=== PATIENT | female | born 1985 | race Caucasian/White ===

== ENCOUNTER 2018-04-12 20:23 | Emergency (ER) | payer BC ==
[~2018-04-12] VITALS: Ht 170.2 cm; Wt 63.6 kg
[2018-04-12 20:25] VITALS: BP 140/97
[2018-04-12] MEDS ORDERED: PENI250T2 PO (20:53)
== END 2018-04-12 21:04 | disposition home or self-care (01) ==
LOC: ER 20:23
DX: K04.7 Periapical abscess without sinus (principal); G89.29 Other chronic pain; Z88.1 Allergy status to other antibiotic agents; Z90.49 Acquired absence of other specified parts of digestive tract; Z79.899 Other long term (current) drug therapy
CPT/HCPCS: 99283

== ENCOUNTER 2018-04-15 15:12 | Emergency (ER) | payer BC ==
[~2018-04-15] VITALS: Ht 170.2 cm; Wt 71.0 kg
[~2018-04-15 15:12] MED LIST: PENI250T2 PO
[2018-04-15 15:17] VITALS: BP 123/89
[2018-04-15] MEDS ORDERED: ondansetron 4mg rapidly disintigrating tab PO ONE (15:55)
[2018-04-15] MEDS ORDERED: predniSONE 20 mg tablet PO ONE (15:55)
[2018-04-15] MEDS ORDERED: diphenhydrAMINE 50 mg/ml inj IM ONE (15:55)
[2018-04-15] MEDS ORDERED: clindamycin 150mg capsule PO ONE (15:55)
[2018-04-15] MEDS ORDERED: CLIN300C85 PO (15:55)
[2018-04-15] MEDS ORDERED: ONDA8TAB9 PO (15:57)
== END 2018-04-15 16:13 | disposition home or self-care (01) ==
LOC: ER 15:13
DX: R11.10 Vomiting, unspecified (principal); R10.9 Unspecified abdominal pain; R19.7 Diarrhea, unspecified; T36.0X5A Adverse effect of penicillins, initial encounter; G89.29 Other chronic pain; Z90.49 Acquired absence of other specified parts of digestive tract; Z88.1 Allergy status to other antibiotic agents; Z79.2 Long term (current) use of antibiotics; Z79.899 Other long term (current) drug therapy; Y92.89 Other specified places as the place of occurrence of the external cause
CPT/HCPCS: 96372; 99284; J1200; J7512

== ENCOUNTER 2018-05-11 19:30 | Emergency (ER) | payer BC ==
[~2018-05-11] VITALS: Ht 172.7 cm; Wt 62.0 kg
[~2018-05-11 19:30] MED LIST changes: +CLIN300C85 PO; +ONDA8TAB9 PO; -PENI250T2 PO
[2018-05-11] MEDS ORDERED: clindamycin 600mg/D5W 50ml 50 ML IV ONE (21:30)
[2018-05-11 22:28] VITALS: BP 118/61
== END 2018-05-11 22:32 | disposition home or self-care (01) ==
LOC: ER 19:30
DX: K04.7 Periapical abscess without sinus (principal); J06.9 Acute upper respiratory infection, unspecified; G89.29 Other chronic pain; F17.200 Nicotine dependence, unspecified, uncomplicated; Z88.0 Allergy status to penicillin; Z88.1 Allergy status to other antibiotic agents; Z79.2 Long term (current) use of antibiotics; Z79.899 Other long term (current) drug therapy; Z90.49 Acquired absence of other specified parts of digestive tract; Z98.890 Other specified postprocedural states
CPT/HCPCS: 96365; 99283; J3490

== ENCOUNTER 2018-06-28 08:32 | Emergency (ER) | payer BC ==
[~2018-06-28] VITALS: Ht 170.2 cm; Wt 71.5 kg
[2018-06-28 08:36] VITALS: BP 126/78
[2018-06-28] MEDS ORDERED: LIDOcaine 1% w/epiNEPHrine 1:200,000 30ml vial IM ONE (08:50)
== END 2018-06-28 09:22 | disposition home or self-care (01) ==
LOC: ER 08:32
DX: S61.233A Puncture wound without foreign body of left middle finger without damage to nail, initial encounter (principal); G89.29 Other chronic pain; F17.210 Nicotine dependence, cigarettes, uncomplicated; Z90.49 Acquired absence of other specified parts of digestive tract; Z98.890 Other specified postprocedural states; Z88.0 Allergy status to penicillin; Z79.2 Long term (current) use of antibiotics; Z88.1 Allergy status to other antibiotic agents; Z88.8 Allergy status to other drugs, medicaments and biological substances; W26.0XXA Contact with knife, initial encounter; Y93.89 Activity, other specified; Y92.89 Other specified places as the place of occurrence of the external cause; Y99.8 Other external cause status
CPT/HCPCS: 12001; 99283; J3490

== ENCOUNTER 2018-07-24 21:01 | Emergency (ER) | payer BC ==
[~2018-07-24] VITALS: Ht 170.2 cm; Wt 63.6 kg
[~2018-07-24 21:01] MED LIST changes: +CLIN-96 PO; -CLIN300C85 PO
[2018-07-24 21:07] VITALS: BP 144/91
[2018-07-24] MEDS ORDERED: CLIN150C8 PO (22:13)
== END 2018-07-24 22:21 | disposition home or self-care (01) ==
LOC: ER 21:01
DX: K08.89 Other specified disorders of teeth and supporting structures (principal); G89.29 Other chronic pain; Z90.49 Acquired absence of other specified parts of digestive tract; Z98.890 Other specified postprocedural states; Z88.0 Allergy status to penicillin; Z88.1 Allergy status to other antibiotic agents; Z79.899 Other long term (current) drug therapy
CPT/HCPCS: 99283

== ENCOUNTER 2019-07-02 12:56 | Emergency (ER) | payer BC, MEDICAID ==
[~2019-07-02] VITALS: Ht 170.2 cm; Wt 71.8 kg
[~2019-07-02 12:56] MED LIST changes: +CLIN-90 PO; -CLIN-96 PO; +CLIN150C8 PO
[2019-07-02] MEDS ORDERED: albuterol 2.5 MG/3 ML nebule NEB ONE (13:55)
[2019-07-02] MEDS ORDERED: DOXY100C2 PO (14:29)
[2019-07-02] MEDS ORDERED: ALBU8.5H8 INH (14:29)
[2019-07-02] MEDS ORDERED: BENZ-16 PO (14:29)
[2019-07-02 14:37] VITALS: BP 104/62
== END 2019-07-02 14:39 | disposition home or self-care (01) ==
LOC: ER 12:56
DX: J20.9 Acute bronchitis, unspecified (principal); R07.89 Other chest pain; G89.29 Other chronic pain; F17.200 Nicotine dependence, unspecified, uncomplicated; Z90.89 Acquired absence of other organs; Z88.0 Allergy status to penicillin; Z88.1 Allergy status to other antibiotic agents; Z88.8 Allergy status to other drugs, medicaments and biological substances; Z87.01 Personal history of pneumonia (recurrent)
CPT/HCPCS: 71045; 94640; 94760; 99283

== ENCOUNTER 2020-01-10 15:38 | Emergency (ER) | payer MEDICAID ==
[~2020-01-10] VITALS: Ht 170.2 cm; Wt 72.7 kg
[~2020-01-10 15:38] MED LIST changes: +ALBU8.5H8 INH; -CLIN-90 PO; +CLIN-97 PO
[2020-01-10 15:43] VITALS: BP 124/83
[2020-01-10] MEDS ORDERED: CEPH250T PO (16:03)
[2020-01-10] MEDS ORDERED: NAPR-56 PO (16:03)
== END 2020-01-10 16:15 | disposition home or self-care (01) ==
LOC: ER 15:39
DX: K08.89 Other specified disorders of teeth and supporting structures (principal); F17.200 Nicotine dependence, unspecified, uncomplicated; Z87.01 Personal history of pneumonia (recurrent); Z79.899 Other long term (current) drug therapy; Z90.49 Acquired absence of other specified parts of digestive tract; Z98.890 Other specified postprocedural states; Z88.0 Allergy status to penicillin; Z88.8 Allergy status to other drugs, medicaments and biological substances; Z79.2 Long term (current) use of antibiotics
CPT/HCPCS: 99283

== ENCOUNTER 2020-01-11 15:16 | Emergency (ER) | payer MEDICAID ==
[~2020-01-11] VITALS: Ht 170.2 cm; Wt 72.7 kg
[~2020-01-11 15:16] MED LIST changes: +CEPH250T PO; +NAPR-56 PO
[2020-01-11 15:21] VITALS: BP 127/76
== END 2020-01-11 16:40 | disposition home or self-care (01) ==
LOC: ER 15:16
DX: K04.7 Periapical abscess without sinus (principal); G89.29 Other chronic pain; Z87.01 Personal history of pneumonia (recurrent); Z90.89 Acquired absence of other organs; Z98.890 Other specified postprocedural states; Z88.0 Allergy status to penicillin; Z88.1 Allergy status to other antibiotic agents; Z88.8 Allergy status to other drugs, medicaments and biological substances; Z79.2 Long term (current) use of antibiotics; Z79.899 Other long term (current) drug therapy
CPT/HCPCS: 99281

== ENCOUNTER 2020-06-25 19:26 | Inpatient (IN) | payer MEDICAID ==
[~2020-06-25] VITALS: Ht 170.2 cm; Wt 70.5 kg
[~2020-06-25 19:26] MED LIST changes: -CEPH250T PO; -NAPR-56 PO
[2020-06-25] MEDS ORDERED: normal saline 1000ML IV soln IVB ONE (19:50)
[2020-06-25] MEDS ORDERED: ketorolac trometh. 30mg/ml inj. IV ONE (19:50)
[2020-06-25] MEDS ORDERED: normal saline 1000ml 1,000 ML IV ONE (19:55)
[2020-06-25] MEDS ORDERED: dexamethasone sod phosphate 10mg/ml inj IV STA (19:55)
[2020-06-25 20:19] LABS: BASOPHILS # (AUTO) 0.1 X10'3 (0-0.2); BASOPHILS % (AUTO) 0.6 % (0-1); EOSINOPHILS # (AUTO) 0.5 X10'3 (0-0.9); EOSINOPHILS % (AUTO) 2.8 % (0-6); HEMATOCRIT 40.7 % (35.0-45.0); HEMOGLOBIN 13.5 g/dl (12.0-16.0); LYMPHOCYTES # (AUTO) 3.7 X10'3 (1.1-4.8); LYMPHOCYTES % (AUTO) 20.5 % (21-51); MEAN CORPUSCULAR HEMOGLOBIN 29.8 PG (27.0-31.0); MEAN CORPUSCULAR HGB CONC 33.1 g/dL (33.0-36.5); MEAN CORPUSCULAR VOLUME 90.2 FL (78-98); MEAN PLATELET VOLUME 6.9 FL (7.4-10.4); MONOCYTES # (AUTO) 1.1 X10'3 (0-0.9); MONOCYTES % (AUTO) 6.2 % (2-12); NEUTROPHILS # (AUTO) 12.5 X10'3 (1.8-7.7); NEUTROPHILS % (AUTO) 69.9 % (42-75); PLATELET COUNT 404 X10'3 (140-440); RED BLOOD COUNT 4.52 X10'6 (4.20-5.60); RED CELL DISTRIBUTION WIDTH 13.3 % (11.5-14.5); WHITE BLOOD COUNT 17.9 X10'3 (4.5-11.0)
[2020-06-25 20:34] LABS: ALANINE AMINOTRANSFERASE 13 U/L (12-78); ALBUMIN 3.7 G/DL (3.4-5.0); ALBUMIN/GLOBULIN RATIO 0.9 (1.1-1.5); ALKALINE PHOSPHATASE 88 IU/L (46-116); ANION GAP 7 (8-16); ASPARTATE AMINO TRANSFERASE 14 U/L (10-37); BILIRUBIN,TOTAL 0.2 MG/DL (0.1-1.0); BLOOD UREA NITROGEN 9 MG/DL (7-18); BUN/CREATININE RATIO 15.5 (6.6-38.0); C-REACTIVE PROTEIN 8.33 MG/DL (0.0-0.5); CALCIUM 8.6 MG/DL (8.5-10.1); CHLORIDE 101 MMOL/L (99-107); CREATININE 0.58 MG/DL (0.40-0.90); GLUCOSE 87 MG/DL (70-104); SODIUM 137 MMOL/L (135-145); TOTAL CARBON DIOXIDE 28.9 MMOL/L (24-32); TOTAL PROTEIN 7.8 G/DL (6.4-8.2); eGFR > 90 ML/MIN
[2020-06-25 20:48] LABS: POTASSIUM 3.8 MMOL/L (3.5-5.1)
[2020-06-25] MEDS ORDERED: CefTRIAXone/D5W-Rocephin 1gm 50 ML IV ONE (21:00)
[2020-06-25] MEDS ORDERED: potassium Cl 20 mEq SR tablet PO PRN ×2 (21:10)
[2020-06-25] MEDS ORDERED: mag hydrox/Alum hydrox/simeth 30ml oral suspension PO PRN (21:10)
[2020-06-25] MEDS ORDERED: magnesium 4gm in 100ml NS 100 ML IV PRN (21:10)
[2020-06-25] MEDS ORDERED: magnesium Cl slow-release 64mg tablet PO PRN (21:10)
[2020-06-25] MEDS ORDERED: ondansetron/PF 4mg/2ml inj IV PRN (21:10)
[2020-06-25] MEDS ORDERED: magnesium hydroxide 30ml (MOM) UD suspension PO PRN (21:10)
[2020-06-25] MEDS ORDERED: magnesium 2GM in 50ml NS 50 ML IV PRN (21:10)
[2020-06-25] MEDS ORDERED: acetaminophen 325mg tablet PO PRN (21:10)
[2020-06-25] MEDS ORDERED: potassium Cl 40MEQ/1/2NS 520ml 520 ML IV PRN ×2 (21:10)
--- NOTE | 2020-06-25 23:05 | NUR ---
Received report from Placido ANDERSON in the ER. The pt arrived on the unit via gurney and was able to ambulate to her bed. She was on 2L O2 via N/C, VSS, with NS running at 100 mls/hr. Pt had no signs of distress, will continue to monitor.
[2020-06-25 23:55] VITALS: BP 133/82
[2020-06-25] MEDS ORDERED: DULO60CA65 PO (23:59)
[2020-06-26] MEDS: HYDROcodone/acetaminophen 5mg/325mg tablet PO PRN ×2 (00:03→08:16)
[2020-06-26] MEDS ORDERED: albuterol 2.5 MG/3 ML nebule NEB PRN (03:00)
[2020-06-26] MEDS ORDERED: dexamethasone 4mg/ml inj IM SCH (04:00)
[2020-06-26] MEDS: dexamethasone sod phosphate 10mg/ml inj IV SCH ×2 (04:17→08:07)
[2020-06-26 06:25] LABS: BASOPHILS % (AUTO) 0.1 % (0-1); EOSINOPHILS % (AUTO) 0 % (0-6); HEMATOCRIT 35.9 % (35.0-45.0); LYMPHOCYTES # (AUTO) 0.5 X10'3 (1.1-4.8); LYMPHOCYTES % (AUTO) 5.5 % (21-51); MEAN CORPUSCULAR HEMOGLOBIN 30.2 PG (27.0-31.0); MEAN CORPUSCULAR HGB CONC 33.5 g/dL (33.0-36.5); MEAN CORPUSCULAR VOLUME 90.3 FL (78-98); MEAN PLATELET VOLUME 7.2 FL (7.4-10.4); MONOCYTES # (AUTO) 0.1 X10'3 (0-0.9); MONOCYTES % (AUTO) 0.6 % (2-12); NEUTROPHILS # (AUTO) 8.7 X10'3 (1.8-7.7); NEUTROPHILS % (AUTO) 93.8 % (42-75); PLATELET COUNT 351 X10'3 (140-440); RED BLOOD COUNT 3.98 X10'6 (4.20-5.60); RED CELL DISTRIBUTION WIDTH 13.7 % (11.5-14.5); WHITE BLOOD COUNT 9.3 X10'3 (4.5-11.0)
[2020-06-26 06:39] LABS: ALANINE AMINOTRANSFERASE 15 U/L (12-78); ALBUMIN 2.9 G/DL (3.4-5.0); ALBUMIN/GLOBULIN RATIO 0.8 (1.1-1.5); ALKALINE PHOSPHATASE 67 IU/L (46-116); ANION GAP 7 (8-16); ASPARTATE AMINO TRANSFERASE 9 U/L (10-37); BILIRUBIN,TOTAL 0.3 MG/DL (0.1-1.0); BLOOD UREA NITROGEN 9 MG/DL (7-18); BUN/CREATININE RATIO 19.1 (6.6-38.0); CHLORIDE 106 MMOL/L (99-107); CREATININE 0.47 MG/DL (0.40-0.90); GLUCOSE 163 MG/DL (70-104); MAGNESIUM 2.1 MG/DL (1.5-2.4); POTASSIUM 4.4 MMOL/L (3.5-5.1); SODIUM 139 MMOL/L (135-145); TOTAL CARBON DIOXIDE 26.3 MMOL/L (24-32); TOTAL PROTEIN 6.4 G/DL (6.4-8.2); eGFR > 90 ML/MIN
--- NOTE | 2020-06-26 06:41 | NUR ---
Problems reprioritized. Patient report given, questions answered & plan of care reviewed with Bina ANDERSON.
--- NOTE | 2020-06-26 06:51 | NUR ---
Patient in room [facility]. I have received report from mira ANDERSON and had the opportunity to ask questions and assume patient care.
[2020-06-26 07:00] VITALS: BP 98/63
[2020-06-26] MEDS ORDERED: azithromycin/NS 500mg/250ml 250 ML IV SCH (08:00)
[2020-06-26] MEDS ORDERED: CefTRIAXone/D5W-Rocephin 1gm 50 ML IV SCH (08:00)
[2020-06-26] MEDS ORDERED: K and/or MAG REPLACEMENT MC SCH (08:00)
[2020-06-26] MEDS ORDERED: pneumococcal 23-VAL P-sac vacc 25 mcg/0.5ml vial IMVAC ONE (10:00)
[2020-06-26] MEDS ORDERED: FLU VACC QS2020-21(6MOS UP)/PF 60 MCG/0.5 ML SYRINGE IMVAC ONE (10:00)
[2020-06-26] MEDS ORDERED: LEVO750T46 PO (10:21)
[2020-06-26] MEDS ORDERED: PRED10TA23 PO (10:21)
--- NOTE | 2020-06-26 12:53 | NUR ---
patient up and about seen by Dr Becerra is for DC o2 sats 95% on RA. All DC instructions given to patient and instructions given for smoking cessation. patient refused flu and pneu shot stated she will have this when she sees her PCP. DC home via private car with spouse to home in stable condition. 1200hrs
== END 2020-06-26 12:28 | disposition home or self-care (01) | DRG 145 ==
LOC: ER 19:27 → ED HOLD 21:08 → SUR 3N 23:30
PROVIDERS: ADMIT Family Medicine; ATTEND Family Medicine
PROC: 3E0234Z Introduction of Serum, Toxoid and Vaccine into Muscle, Percutaneous Approach (ICD-10-PCS; principal; 2020-06-26)
PROC: 3E02340 Introduction of Influenza Vaccine into Muscle, Percutaneous Approach (ICD-10-PCS; 2020-06-26)
DX: J20.9 Acute bronchitis, unspecified (principal); J96.01 Acute respiratory failure with hypoxia; F17.210 Nicotine dependence, cigarettes, uncomplicated; G89.29 Other chronic pain; J45.909 Unspecified asthma, uncomplicated; M54.9 Dorsalgia, unspecified; Z20.822 Contact with and (suspected) exposure to COVID-19; Z79.899 Other long term (current) drug therapy; Z90.49 Acquired absence of other specified parts of digestive tract; Z23 Encounter for immunization; Z88.0 Allergy status to penicillin; Z88.8 Allergy status to other drugs, medicaments and biological substances
CPT/HCPCS: 36415; 71045; 80053; 83605; 83735; 84145; 85025; 86140; 87040; 87081; 87502; 87503; 87635; 90732; 93005; 94640; 94760; 96361; 96365; 96375; 99285; C9803; G0378; J0456; J0696; J1100; J1885; J7030

== ENCOUNTER 2020-07-09 20:42 | Emergency (ER) | payer MEDICAID ==
[~2020-07-09] VITALS: Ht 170.2 cm; Wt 72.7 kg
[~2020-07-09 20:42] MED LIST changes: -CLIN-97 PO; -CLIN150C8 PO; +DULO60CA65 PO; -ONDA8TAB9 PO; +PRED10TA23 PO
[2020-07-09] MEDS ORDERED: ipratropium/albuterol 3ml nebule NEB ONE (21:30)
[2020-07-09] MEDS ORDERED: ALBU8.5H8 INH (22:37)
[2020-07-09] MEDS ORDERED: CIPR-260 PO (22:37)
[2020-07-09 22:50] VITALS: BP 125/85
== END 2020-07-09 22:52 | disposition home or self-care (01) ==
LOC: ER 20:43
DX: R05 Cough (principal); R06.02 Shortness of breath; R09.02 Hypoxemia; J45.909 Unspecified asthma, uncomplicated; G89.29 Other chronic pain; F17.200 Nicotine dependence, unspecified, uncomplicated; Z90.49 Acquired absence of other specified parts of digestive tract; Z87.01 Personal history of pneumonia (recurrent); Z88.0 Allergy status to penicillin; Z88.1 Allergy status to other antibiotic agents; Z88.8 Allergy status to other drugs, medicaments and biological substances; Z79.2 Long term (current) use of antibiotics; Z79.899 Other long term (current) drug therapy
CPT/HCPCS: 71045; 94640; 94760; 99283

== ENCOUNTER 2020-07-14 12:35 | Emergency (ER) | payer MEDICAID ==
[~2020-07-14] VITALS: Ht 170.2 cm; Wt 71.6 kg
[~2020-07-14 12:35] MED LIST changes: +CIPR-260 PO
[2020-07-14 12:42] VITALS: BP 133/89
[2020-07-14] MEDS ORDERED: ACET-3067 PO (13:09)
[2020-07-14] MEDS ORDERED: PENI500T2 PO (13:09)
== END 2020-07-14 13:17 | disposition home or self-care (01) ==
LOC: ER 12:35
DX: K02.9 Dental caries, unspecified (principal); K08.89 Other specified disorders of teeth and supporting structures; Z88.1 Allergy status to other antibiotic agents; J45.909 Unspecified asthma, uncomplicated; G89.29 Other chronic pain; Z87.01 Personal history of pneumonia (recurrent); Z90.49 Acquired absence of other specified parts of digestive tract; Z79.2 Long term (current) use of antibiotics; Z79.899 Other long term (current) drug therapy
CPT/HCPCS: 99281

== ENCOUNTER 2020-08-14 12:40 | Emergency (ER) | payer MEDICAID ==
[~2020-08-14] VITALS: Ht 170.2 cm; Wt 70.7 kg
[~2020-08-14 12:40] MED LIST changes: -PRED10TA23 PO
[2020-08-14 12:44] VITALS: BP 139/73
[2020-08-14] MEDS ORDERED: DULO60CA45 PO (12:46)
== END 2020-08-14 12:51 | disposition home or self-care (01) ==
LOC: ER 12:40
DX: F32.9 Major depressive disorder, single episode, unspecified (principal); Z76.0 Encounter for issue of repeat prescription; J45.909 Unspecified asthma, uncomplicated; G89.29 Other chronic pain; Z90.49 Acquired absence of other specified parts of digestive tract; Z88.1 Allergy status to other antibiotic agents; Z88.8 Allergy status to other drugs, medicaments and biological substances; Z79.899 Other long term (current) drug therapy
CPT/HCPCS: 99281

== ENCOUNTER 2020-09-14 16:09 | Emergency (ER) | payer MEDICAID ==
[~2020-09-14] VITALS: Ht 170.2 cm; Wt 68.2 kg
[~2020-09-14 16:09] MED LIST changes: +DULO60CA45 PO
[2020-09-14 16:10] VITALS: BP 131/78
[2020-09-14] MEDS ORDERED: ALBU8HFA PO (16:23)
[2020-09-14] MEDS ORDERED: DULO-31 PO (16:23)
== END 2020-09-14 16:33 | disposition home or self-care (01) ==
LOC: ER 16:10
DX: G89.29 Other chronic pain (principal); J45.909 Unspecified asthma, uncomplicated; Z76.0 Encounter for issue of repeat prescription; Z90.49 Acquired absence of other specified parts of digestive tract; Z98.890 Other specified postprocedural states; Z88.1 Allergy status to other antibiotic agents; Z88.8 Allergy status to other drugs, medicaments and biological substances; Z79.899 Other long term (current) drug therapy
CPT/HCPCS: 99281

== ENCOUNTER 2020-09-20 15:26 | Emergency (ER) | payer MEDICAID ==
[~2020-09-20] VITALS: Ht 170.2 cm; Wt 72.7 kg
[~2020-09-20 15:26] MED LIST changes: +ALBU8HFA PO; +DULO-31 PO
[2020-09-20 15:32] VITALS: BP 131/76
[2020-09-20] MEDS ORDERED: DULO60CA45 PO (15:38)
== END 2020-09-20 15:41 | disposition home or self-care (01) ==
LOC: ER 15:28
DX: F32.9 Major depressive disorder, single episode, unspecified (principal); J45.909 Unspecified asthma, uncomplicated; G89.29 Other chronic pain; Z76.0 Encounter for issue of repeat prescription; Z87.01 Personal history of pneumonia (recurrent); Z90.89 Acquired absence of other organs; Z98.890 Other specified postprocedural states; Z88.1 Allergy status to other antibiotic agents; Z88.8 Allergy status to other drugs, medicaments and biological substances; Z79.2 Long term (current) use of antibiotics; Z79.899 Other long term (current) drug therapy
CPT/HCPCS: 99281

== ENCOUNTER 2020-10-19 12:08 | Emergency (ER) | payer MEDICAID ==
[~2020-10-19] VITALS: Ht 170.2 cm; Wt 72.7 kg
[~2020-10-19 12:08] MED LIST changes: -ALBU8HFA PO
[2020-10-19 12:29] VITALS: BP 120/79
== END 2020-10-19 14:08 | disposition left against medical advice (07) ==
LOC: ER 12:10
DX: J45.909 Unspecified asthma, uncomplicated (principal); Z53.21 Procedure and treatment not carried out due to patient leaving prior to being seen by health care provider

== ENCOUNTER 2020-11-19 11:54 | Emergency (ER) | payer MEDICAID ==
[~2020-11-19] VITALS: Ht 170.2 cm; Wt 70.4 kg
[2020-11-19 12:02] VITALS: BP 114/72
[2020-11-19] MEDS ORDERED: ALB0.5UD IH (13:17)
[2020-11-19] MEDS ORDERED: PENI500T2 PO ×2 (13:17→13:20)
[2020-11-19] MEDS ORDERED: ALBU8.5H8 INH (13:20)
[2020-11-19] MEDS ORDERED: acetaminophen 325mg tablet PO ONE (13:25)
== END 2020-11-19 13:40 | disposition home or self-care (01) ==
LOC: ER 11:55
DX: K00.7 Teething syndrome (principal); K08.89 Other specified disorders of teeth and supporting structures; J45.909 Unspecified asthma, uncomplicated; G89.29 Other chronic pain; F32.9 Major depressive disorder, single episode, unspecified; Z87.01 Personal history of pneumonia (recurrent); Z90.89 Acquired absence of other organs; Z98.890 Other specified postprocedural states; Z88.1 Allergy status to other antibiotic agents; Z88.8 Allergy status to other drugs, medicaments and biological substances; Z79.2 Long term (current) use of antibiotics; Z79.899 Other long term (current) drug therapy
CPT/HCPCS: 99283

== ENCOUNTER 2021-03-25 15:52 | Emergency (ER) | payer MEDICAID ==
[~2021-03-25] VITALS: Ht 170.2 cm; Wt 77.2 kg
[~2021-03-25 15:52] MED LIST changes: +ALBU8.5H17 INH; -ALBU8.5H8 INH; -DULO60CA45 PO; +DULO60CA59 PO; +DULO60CA60 PO; +PENI500T2 PO
[2021-03-25 16:51] VITALS: BP 104/75
[2021-03-25] MEDS ORDERED: ALBU8.5H17 INH (17:49)
[2021-03-25] MEDS ORDERED: DULO60CA59 PO (17:49)
[2021-03-25] MEDS ORDERED: AZIT250T83 PO (18:33)
== END 2021-03-25 18:54 | disposition home or self-care (01) ==
LOC: ER 15:52
DX: J20.9 Acute bronchitis, unspecified (principal); Z20.822 Contact with and (suspected) exposure to COVID-19; J45.909 Unspecified asthma, uncomplicated; G89.29 Other chronic pain; F17.210 Nicotine dependence, cigarettes, uncomplicated; Z87.01 Personal history of pneumonia (recurrent); Z90.49 Acquired absence of other specified parts of digestive tract; Z79.2 Long term (current) use of antibiotics; Z79.899 Other long term (current) drug therapy; Z88.1 Allergy status to other antibiotic agents; Z88.8 Allergy status to other drugs, medicaments and biological substances
CPT/HCPCS: 71045; 87635; 99284; C9803

== ENCOUNTER 2021-08-10 14:06 | Emergency (ER) | payer MEDICAID, BC ==
[~2021-08-10] VITALS: Ht 170.2 cm; Wt 94.2 kg
[2021-08-10 14:09] VITALS: BP 151/91
[2021-08-10] MEDS ORDERED: DULO60CA59 PO (14:18)
== END 2021-08-10 14:28 | disposition home or self-care (01) ==
LOC: ER 14:07
DX: O99.342 Other mental disorders complicating pregnancy, second trimester (principal); F32.9 Major depressive disorder, single episode, unspecified; Z76.0 Encounter for issue of repeat prescription; G89.29 Other chronic pain; M54.9 Dorsalgia, unspecified; J44.9 Chronic obstructive pulmonary disease, unspecified; Z88.1 Allergy status to other antibiotic agents
CPT/HCPCS: 99281

== ENCOUNTER 2021-08-24 16:44 | Emergency (ER) | payer BC, MEDICAID ==
[~2021-08-24] VITALS: Ht 170.2 cm; Wt 99.1 kg
[2021-08-24 16:48] VITALS: BP 164/94
--- NOTE | 2021-08-24 17:53 | NUR ---
Patient stated that she didn't want to be seen and will go to her doctors appointment that is scheduled later this week.
== END 2021-08-24 18:02 | disposition left against medical advice (07) ==
LOC: ER 16:45
DX: H57.11 Ocular pain, right eye (principal); Z53.21 Procedure and treatment not carried out due to patient leaving prior to being seen by health care provider

== ENCOUNTER 2021-11-21 09:45 | Emergency (ER) | payer BC, MEDICAID ==
[~2021-11-21] VITALS: Ht 170.2 cm; Wt 86.8 kg
[2021-11-21 10:24] VITALS: BP 136/91
== END 2021-11-21 10:50 | disposition home or self-care (01) ==
LOC: ER 09:45
DX: O26.893 Other specified pregnancy related conditions, third trimester (principal); R60.9 Edema, unspecified; J45.909 Unspecified asthma, uncomplicated; F19.10 Other psychoactive substance abuse, uncomplicated; G89.29 Other chronic pain; F32.A Depression, unspecified; Z3A.38 38 weeks gestation of pregnancy; Z87.01 Personal history of pneumonia (recurrent); Z90.89 Acquired absence of other organs; Z98.890 Other specified postprocedural states; Z88.1 Allergy status to other antibiotic agents; Z88.8 Allergy status to other drugs, medicaments and biological substances; Z79.2 Long term (current) use of antibiotics; Z79.899 Other long term (current) drug therapy
CPT/HCPCS: 99281

== ENCOUNTER 2022-01-04 17:36 | Emergency (ER) | payer MEDICAID ==
[~2022-01-04] VITALS: Ht 170.2 cm; Wt 73.2 kg
[2022-01-04 17:47] VITALS: BP 123/84
[2022-01-04 18:47] LABS: BASOPHILS # (AUTO) 0.1 X10'3 (0-0.2); BASOPHILS % (AUTO) 1.2 % (0-1); EOSINOPHILS # (AUTO) 0.4 X10'3 (0-0.9); EOSINOPHILS % (AUTO) 4.6 % (0-6); HEMATOCRIT 31.8 % (35.0-45.0); HEMOGLOBIN 10.3 g/dl (12.0-16.0); LYMPHOCYTES # (AUTO) 2.3 X10'3 (1.1-4.8); LYMPHOCYTES % (AUTO) 27.4 % (21-51); MEAN CORPUSCULAR HEMOGLOBIN 25.8 PG (27.0-31.0); MEAN CORPUSCULAR HGB CONC 32.4 g/dL (33.0-36.5); MEAN CORPUSCULAR VOLUME 79.7 FL (78-98); MEAN PLATELET VOLUME 6.7 FL (7.4-10.4); MONOCYTES # (AUTO) 0.6 X10'3 (0-0.9); MONOCYTES % (AUTO) 7.2 % (2-12); NEUTROPHILS % (AUTO) 59.6 % (42-75); PLATELET COUNT 417 X10'3 (140-440); RED CELL DISTRIBUTION WIDTH 22.2 % (11.5-14.5); WHITE BLOOD COUNT 8.4 X10'3 (4.5-11.0)
[2022-01-04 19:04] LABS: ALANINE AMINOTRANSFERASE 21 U/L (12-78); ALBUMIN 3.2 G/DL (3.4-5.0); ALBUMIN/GLOBULIN RATIO 0.8 (1.1-1.5); ALKALINE PHOSPHATASE 90 IU/L (46-116); ANION GAP 8 (8-16); ASPARTATE AMINO TRANSFERASE 11 U/L (10-37); BILIRUBIN,TOTAL 0.1 MG/DL (0.1-1.0); BLOOD UREA NITROGEN 16 MG/DL (7-18); BUN/CREATININE RATIO 25.4 (6.6-38.0); CALCIUM 8.5 MG/DL (8.5-10.1); CHLORIDE 102 MMOL/L (99-107); CREATININE 0.63 MG/DL (0.40-0.90); GLUCOSE 98 MG/DL (70-104); POTASSIUM 4.5 MMOL/L (3.5-5.1); SODIUM 139 MMOL/L (135-145); TOTAL CARBON DIOXIDE 29.2 MMOL/L (24-32); TOTAL PROTEIN 7.4 G/DL (6.4-8.2); eGFR > 90 ML/MIN
[2022-01-04 19:17] LABS: CLARITY,URINE CLEAR (Clear); COLOR,URINE YELLOW (Yellow); GLUCOSE, URINE NEGATIVE (Neg); KETONES,URINE NEGATIVE (Neg); LEUKOCYTE ESTERASE ,URINE NEGATIVE (Neg); NITRITES, URINE NEGATIVE (Neg); OCCULT BLOOD,URINE NEGATIVE (Neg); PH,URINE 7.5 (4.8-8.0); PROTEIN,URINE NEGATIVE (Neg); UROBILINOGEN,URINE 0.2 E.U/dL (0.2-1.0)
[2022-01-04 19:22] LABS: UA COLLECTION TYPE CLN CATCH MIDSTREAM
[2022-01-04] MEDS ORDERED: HYDR25TA5 PO (19:24)
[2022-01-04] MEDS ORDERED: CITA20TA28 PO (19:24)
[2022-01-04] MEDS ORDERED: DULO60CA59 PO (19:24)
[2022-01-04 19:28] LABS: ANISOCYTOSIS 3+; ELLIPTOCYTES FEW; MICROCYTOSIS 1+; PLATELET ESTIMATE NORMAL; POLYCHROMASIA FEW; STOMATOCYTES FEW; TARGET CELLS 1+
== END 2022-01-04 20:10 | disposition home or self-care (01) ==
LOC: ER 17:38
DX: O99.345 Other mental disorders complicating the puerperium (principal); R60.0 Localized edema; J45.909 Unspecified asthma, uncomplicated; G89.29 Other chronic pain; M54.9 Dorsalgia, unspecified; Z90.49 Acquired absence of other specified parts of digestive tract; I10 Essential (primary) hypertension; Z88.0 Allergy status to penicillin; Z79.899 Other long term (current) drug therapy; Z79.2 Long term (current) use of antibiotics
CPT/HCPCS: 36415; 80053; 81003; 85008; 85025; 99283

== ENCOUNTER 2022-03-08 15:35 | Emergency (ER) | payer MEDICAID ==
[~2022-03-08] VITALS: Ht 170.2 cm; Wt 81.8 kg
[~2022-03-08 15:35] MED LIST changes: +HYDR25TA5 PO
[2022-03-08 15:37] VITALS: BP 133/85
[2022-03-08] MEDS ORDERED: AMOX-117 PO (17:33)
== END 2022-03-08 17:43 | disposition home or self-care (01) ==
LOC: ER 15:35
DX: K04.7 Periapical abscess without sinus (principal); J45.909 Unspecified asthma, uncomplicated; G89.29 Other chronic pain; M54.50 Low back pain, unspecified; Z98.890 Other specified postprocedural states
CPT/HCPCS: 99283

== ENCOUNTER 2022-03-24 16:50 | Emergency (ER) | payer MEDICAID ==
[~2022-03-24] VITALS: Ht 170.2 cm; Wt 84.0 kg
[2022-03-24 17:41] VITALS: BP 116/76
[2022-03-24] MEDS ORDERED: cephalexin 250mg capsule PO ONE (18:05)
[2022-03-24] MEDS ORDERED: DOXYCYCLINE 100MG CAPSULE PO STA (18:05)
[2022-03-24] MEDS ORDERED: DOXY100T67 PO (18:13)
[2022-03-24] MEDS ORDERED: CEPH250T PO (18:13)
--- NOTE | 2022-03-24 18:18 | NUR ---
po med x2 given
[2022-03-24] MEDS ORDERED: MUPI22OI30 TOP (18:28)
== END 2022-03-24 18:45 | disposition home or self-care (01) ==
LOC: ER 16:52
DX: L03.115 Cellulitis of right lower limb (principal); L03.116 Cellulitis of left lower limb; I87.2 Venous insufficiency (chronic) (peripheral); J45.909 Unspecified asthma, uncomplicated; G89.29 Other chronic pain; M54.9 Dorsalgia, unspecified; Z90.49 Acquired absence of other specified parts of digestive tract; Z79.899 Other long term (current) drug therapy; Z79.1 Long term (current) use of non-steroidal anti-inflammatories (NSAID); Z79.2 Long term (current) use of antibiotics
CPT/HCPCS: 99283

== ENCOUNTER 2024-01-13 09:22 | Emergency (ER) | payer MEDICAID ==
[~2024-01-13] VITALS: Ht 170.2 cm; Wt 71.2 kg
[2024-01-13 11:21] LABS: BASOPHILS # (AUTO) 0.1 X10'3 (0-0.2); BASOPHILS % (AUTO) 0.8 % (0-1); EOSINOPHILS # (AUTO) 0.2 X10'3 (0-0.9); EOSINOPHILS % (AUTO) 3.5 % (0-6); HEMATOCRIT 35.3 % (35.0-45.0); HEMOGLOBIN 11.7 g/dl (12.0-16.0); LYMPHOCYTES # (AUTO) 2.1 X10'3 (1.1-4.8); LYMPHOCYTES % (AUTO) 30.6 % (21-51); MEAN CORPUSCULAR HEMOGLOBIN 29.2 PG (27.0-31.0); MEAN CORPUSCULAR VOLUME 88.2 FL (78-98); MEAN PLATELET VOLUME 7.2 FL (7.4-10.4); MONOCYTES # (AUTO) 0.6 X10'3 (0-0.9); MONOCYTES % (AUTO) 7.9 % (2-12); NEUTROPHILS % (AUTO) 57.2 % (42-75); PLATELET COUNT 381 X10'3 (140-440); RED CELL DISTRIBUTION WIDTH 14.3 % (11.5-14.5)
[2024-01-13 11:23] LABS: URINE HCG NEGATIVE (NEG)
[2024-01-13 11:27] LABS: BILIRUBIN,URINE NEGATIVE (Neg); CLARITY,URINE CLOUDY (Clear); COLOR,URINE YELLOW (Yellow); GLUCOSE, URINE NEGATIVE (Neg); KETONES,URINE NEGATIVE (Neg); LEUKOCYTE ESTERASE ,URINE SMALL (Neg); NITRITES, URINE NEGATIVE (Neg); OCCULT BLOOD,URINE TRACE-INTACT (Neg); PROTEIN,URINE TRACE mg/dl (Neg); UROBILINOGEN,URINE 0.2 E.U/dL (0.2-1.0)
[2024-01-13 11:33] LABS: ALANINE AMINOTRANSFERASE 18 U/L (12-78); ALBUMIN 3.7 G/DL (3.4-5.0); ALBUMIN/GLOBULIN RATIO 0.9 (1.1-1.5); ALKALINE PHOSPHATASE 97 IU/L (46-116); ANION GAP 7 (8-16); ASPARTATE AMINO TRANSFERASE 13 U/L (10-37); BILIRUBIN,TOTAL 0.2 MG/DL (0.1-1.0); BLOOD UREA NITROGEN 10 MG/DL (7-18); BUN/CREATININE RATIO 16.1 (10.0-20.0); C-REACTIVE PROTEIN 0.99 MG/DL (0.0-0.5); CALCIUM 9.1 MG/DL (8.5-10.1); CHLORIDE 100 MMOL/L (99-107); CREATININE 0.62 MG/DL (0.40-0.90); GLUCOSE 75 MG/DL (70-104); POTASSIUM 3.4 MMOL/L (3.5-5.1); SODIUM 138 MMOL/L (135-145); TOTAL CARBON DIOXIDE 30.9 MMOL/L (24-32); eCRCL 122 ML/MIN; eGFR > 90 ML/MIN
[2024-01-13 11:46] LABS: UA COLLECTION TYPE CLN CATCH MIDSTREAM
[2024-01-13 11:48] LABS: BACTERIA,URINE 2+ /HPF (Neg); RBC,URINE 0-2 /HPF (0-2); SQUAMOUS EPITHELIAL CELL,UR MANY /LPF (FEW); WBC,URINE 50-100 /HPF (0-4)
[2024-01-13 11:49] LABS: MUCUS STRANDS MODERATE /LPF (Neg)
[2024-01-13] MEDS: orphenadrine citrate 60mg/2ml inj. IM ONE (13:36)
[2024-01-13] MEDS: ketorolac trometh 15mg/ml vial 15 MG/ML ML IM ONE (13:36)
[2024-01-13 13:47] VITALS: TEMP 98.1
[2024-01-13 13:58] LABS: BILIRUBIN,URINE NEGATIVE (Neg); CLARITY,URINE CLOUDY (Clear); COLOR,URINE YELLOW (Yellow); GLUCOSE, URINE NEGATIVE (Neg); KETONES,URINE NEGATIVE (Neg); LEUKOCYTE ESTERASE ,URINE NEGATIVE (Neg); NITRITES, URINE NEGATIVE (Neg); OCCULT BLOOD,URINE TRACE-INTACT (Neg); PROTEIN,URINE NEGATIVE (Neg); UROBILINOGEN,URINE 0.2 E.U/dL (0.2-1.0)
[2024-01-13 14:01] LABS: UA COLLECTION TYPE CLN CATCH MIDSTREAM
[2024-01-13 14:08] LABS: SQUAMOUS EPITHELIAL CELL,UR FEW /LPF (FEW)
[2024-01-13 14:09] LABS: BACTERIA,URINE FEW /HPF (Neg)
[2024-01-13 14:17] LABS: AMORPHOUS PHOSPHATES 3+; MUCUS STRANDS FEW /LPF (Neg)
[2024-01-13] MEDS ORDERED: CEPH500C2 PO (14:32)
[2024-01-13] MEDS ORDERED: DIF150T PO (14:32)
[2024-01-13] MEDS ORDERED: BACL10TA2 PO (14:34)
[2024-01-13] MEDS ORDERED: IBUP-1986 PO (14:34)
[2024-01-13 14:55] VITALS: BP 137/89; PULSE 89; RESP 16; O2SAT 99
== END 2024-01-13 15:05 | disposition home or self-care (01) ==
LOC: ER 09:23
DX: L03.116 Cellulitis of left lower limb (principal); M41.9 Scoliosis, unspecified; B37.31 Acute candidiasis of vulva and vagina; J45.909 Unspecified asthma, uncomplicated; G89.29 Other chronic pain; M54.9 Dorsalgia, unspecified; Z79.1 Long term (current) use of non-steroidal anti-inflammatories (NSAID); Z79.2 Long term (current) use of antibiotics; Z79.899 Other long term (current) drug therapy
CPT/HCPCS: 36415; 72128; 80053; 81001; 81025; 85025; 86140; 87088; 87210; 96372; 99285; J1885; J2360; Q0112; 87491

== ENCOUNTER 2024-02-05 12:32 | Emergency (ER) | payer MEDICAID ==
[~2024-02-05] VITALS: Ht 170.2 cm; Wt 71.9 kg
[~2024-02-05 12:32] MED LIST changes: +BACL10TA2 PO; +DIF150T PO; +IBUP-1986 PO
[2024-02-05 13:03] VITALS: BP 120/76; PULSE 72; RESP 16; TEMP 98; O2SAT 97
[2024-02-05] MEDS ORDERED: BACL10TA2 PO (14:51)
[2024-02-05] MEDS ORDERED: LURA60TA PO (14:51)
[2024-02-05] MEDS ORDERED: ONDA-245 PO (14:51)
[2024-02-05] MEDS ORDERED: IBUP-1984 PO (14:51)
== END 2024-02-05 15:04 | disposition home or self-care (01) ==
LOC: ER 12:33
DX: Z76.0 Encounter for issue of repeat prescription (principal); J45.909 Unspecified asthma, uncomplicated; G89.29 Other chronic pain; M54.9 Dorsalgia, unspecified; Z88.1 Allergy status to other antibiotic agents; Z88.8 Allergy status to other drugs, medicaments and biological substances; Z79.1 Long term (current) use of non-steroidal anti-inflammatories (NSAID); Z79.2 Long term (current) use of antibiotics; Z79.899 Other long term (current) drug therapy; Z98.890 Other specified postprocedural states
CPT/HCPCS: 99281

== ENCOUNTER 2024-03-18 15:39 | Emergency (ER) | payer MEDICAID ==
[~2024-03-18] VITALS: Ht 170.2 cm; Wt 64.0 kg
[~2024-03-18 15:39] MED LIST changes: -DIF150T PO; +LURA60TA PO; +ONDA-245 PO
[2024-03-18 15:54] VITALS: BP 124/85; PULSE 88; RESP 16; TEMP 98.4; O2SAT 100
[2024-03-18] MEDS ORDERED: METH4TAB81 PO (16:50)
[2024-03-18] MEDS: triamcinolone acetonide 40mg/ml inj IM ONE (17:04)
== END 2024-03-18 17:11 | disposition home or self-care (01) ==
LOC: ER 15:39
DX: L23.89 Allergic contact dermatitis due to other agents (principal); J45.909 Unspecified asthma, uncomplicated; G89.29 Other chronic pain; M54.9 Dorsalgia, unspecified; F32.A Depression, unspecified; Z90.49 Acquired absence of other specified parts of digestive tract; Z88.1 Allergy status to other antibiotic agents; Z79.1 Long term (current) use of non-steroidal anti-inflammatories (NSAID); Z79.899 Other long term (current) drug therapy
CPT/HCPCS: 96372; 99283; J3301

== ENCOUNTER 2024-06-12 14:31 | Emergency (ER) | payer MEDICAID ==
[~2024-06-12] VITALS: Ht 170.2 cm; Wt 65.0 kg
[~2024-06-12 14:31] MED LIST changes: +METH4TAB81 PO
[2024-06-12 14:45] VITALS: BP 104/68; PULSE 88; TEMP 98.8; O2SAT 97
[2024-06-12 15:06] VITALS: RESP 16
[2024-06-12] MEDS ORDERED: ALBU8HFA PO (15:16)
== END 2024-06-12 15:30 | disposition home or self-care (01) ==
LOC: ER 14:31
DX: J22 Unspecified acute lower respiratory infection (principal); J45.909 Unspecified asthma, uncomplicated; F32.A Depression, unspecified; Z88.0 Allergy status to penicillin; Z88.8 Allergy status to other drugs, medicaments and biological substances; Z90.49 Acquired absence of other specified parts of digestive tract; Z98.890 Other specified postprocedural states
CPT/HCPCS: 99283